=== PATIENT | male | born 1985 | race Two or more races ===

== ENCOUNTER 2025-05-09 17:40 | Inpatient (IN) | payer MEDICAID ==
[~2025-05-09] VITALS: Ht 167.6 cm; Wt 79.8 kg
[2025-05-09 17:45] VITALS: O2SAT 100
[2025-05-09 20:06] LABS: BASOPHILS % 0.1 % (0.0-2.0); EOSINOPHILS % 0.3 % (0.0-5.0); HEMATOCRIT. 41.5 % (42.0-52.0); HEMOGLOBIN. 13.9 g/dL (14.0-18.0); LYMPHOCYTES % 9.1 % (20.0-50.0); MEAN PLATELET VOLUME 8.3 fl (7.4-10.4); MONOCYTES % 8.6 % (2.0-8.0); NEUTROPHILS % 81.9 % (40.0-76.0); PLATELET 377 x1000/uL (130-400); RED BLOOD CELL COUNT 4.40 mill/uL (4.7-6.1); RED CELL DISTRIBUTION WIDTH 12.5 % (11.6-14.6)
[2025-05-09 20:15] LABS: CREATININE 1.6 mg/dL (0.6-1.3); INR 1.0; UREA NITROGEN BLOOD 17 mg/dL (9-23)
[2025-05-09] MEDS: LORAZEPAM 2MG/ML UD SYRINGE IM NR (20:15)
[2025-05-09 20:17] LABS: ASPARTATE AMINOTRANSFERASE 70 IU/L (<34); BILIRUBIN DIRECT 0.5 mg/dL (<=3.0); BILIRUBIN TOTAL 2.0 mg/dL (0.1-1.0); PROTEIN TOTAL 8.0 g/dL (6.0-8.3)
[2025-05-09 20:19] LABS: TROPONIN I HIGH SENSITIVITY 5 ng/L (3.0-53)
[2025-05-09] MEDS: IOHEXOL-300 100 ML BOTTLE ONE (22:37)
[2025-05-09] MEDS ORDERED: TETANUS, DIPHTHERIA, PERTUSSIS VAC/PF 0.5ML (>10YR OLD) IM ONE (22:45)
[2025-05-09] MEDS: LIDOCAINE HCL 1% 20ML VIAL INFIL ONE (22:45)
[2025-05-10 04:52] VITALS: BP 147/85; PULSE 94; RESP 19; TEMP 36.5292
[2025-05-10] MEDS: PANTOPRAZOLE 40MG DR TABLET PO SCH (06:14)
[2025-05-10 08:00] VITALS: BP 132/80; PULSE 89; RESP 17; TEMP 36.8; O2SAT 98
[2025-05-10] MEDS: THIAMINE HCL 100MG TABLET PO SCH (08:39)
[2025-05-10] MEDS: METOPROLOL TARTRATE 50MG TABLET PO SCH (08:39)
[2025-05-10] MEDS: FOLIC ACID 1MG TABLET PO SCH (08:39)
[2025-05-10] MEDS: HYDROCODONE/ACETAMINOPHEN 5/325MG TABLET PO PRN (10:41)
[2025-05-10 12:00] VITALS: BP 125/81; PULSE 77; RESP 18; TEMP 36.3; O2SAT 99
[2025-05-10] MEDS ORDERED: ACETAMINOPHEN 325MG TABLET PO PRN (15:00)
[2025-05-10] MEDS ORDERED: MORPHINE SULFATE 2 MG/ML INJ (NOT FOR IM USE) IV PRN (15:00)
[2025-05-10] MEDS ORDERED: NALOXONE HCL 0.4MG/ML VIAL IV PRN (15:15)
[2025-05-10 16:00] VITALS: BP 118/84; PULSE 72; RESP 18; TEMP 36.4; O2SAT 99
[2025-05-10] MEDS: PANTOPRAZOLE SODIUM 40 MG/VIAL IV SCH (16:08)
[2025-05-10 20:00] VITALS: BP 134/91; PULSE 78; RESP 16; TEMP 37; O2SAT 99
[2025-05-11] VITALS: BP 133/90; PULSE 79; RESP 18; TEMP 36.5; O2SAT 97
[2025-05-11 04:45] VITALS: BP 144/87; PULSE 67; RESP 18; TEMP 36.3; O2SAT 98
[2025-05-11 07:18] LABS: BASOPHILS % 0.3 % (0.0-2.0); EOSINOPHILS % 2.9 % (0.0-5.0); HEMATOCRIT. 41.6 % (42.0-52.0); HEMOGLOBIN. 14.1 g/dL (14.0-18.0); LYMPHOCYTES % 38.4 % (20.0-50.0); MEAN PLATELET VOLUME 8.6 fl (7.4-10.4); MONOCYTES % 13.9 % (2.0-8.0); NEUTROPHILS % 44.5 % (40.0-76.0); PLATELET 311 x1000/uL (130-400); RED BLOOD CELL COUNT 4.41 mill/uL (4.7-6.1); RED CELL DISTRIBUTION WIDTH 12.4 % (11.6-14.6)
[2025-05-11 07:42] LABS: CREATININE 1.3 mg/dL (0.6-1.3); UREA NITROGEN BLOOD 18 mg/dL (9-23)
[2025-05-11 08:00] VITALS: BP 156/89; PULSE 97; RESP 15; TEMP 36.7; O2SAT 95
[2025-05-11] MEDS: POLYETHYLENE GLYCOL 3350 (17GM) 1 DOSE PACK PO SCH (11:20)
[2025-05-11] MEDS: SENNOSIDES/DOCUSATE SOD 8.6/50MG TABLET PO SCH (11:20)
[2025-05-11 12:00] VITALS: BP 194/120; PULSE 74; RESP 20; TEMP 36.7; O2SAT 97
[2025-05-11] MEDS: HYDRALAZINE 10 MG in SODIUM CHLORIDE 0.9% 49.5 ML IV PRN (14:29)
[2025-05-11 16:00] VITALS: BP 170/102; PULSE 75; RESP 20; TEMP 36.2; O2SAT 95
[2025-05-11] MEDS: ONDANSETRON HCL 4MG/2ML INJ IV PRN (16:51)
[2025-05-11] MEDS ORDERED: IBUPROFEN 800MG TABLET PO PRN (17:00)
[2025-05-11 20:00] VITALS: BP 126/86; PULSE 69; RESP 17; TEMP 36.5; O2SAT 98
[2025-05-12] VITALS: BP 126/79; PULSE 73; RESP 18; TEMP 36.9; O2SAT 95
[2025-05-12 01:30] LABS: CLARITY URINE CLEAR (CLEAR); COLOR URINE YELLOW (YELLOW); GLUCOSE URINE NEGATIVE (NEGATIVE); KETONES URINE 1+ (NEGATIVE); LEUKOCYTE ESTERASE URINE NEGATIVE (NEGATIVE); NITRITE URINE NEGATIVE (NEGATIVE); OCCULT BLOOD URINE TRACE (NEGATIVE); PH URINE 6.0 (4.5-8.0); PROTEIN URINE NEGATIVE (NEGATIVE); SPECIFIC GRAVITY URINE 1.013 (1.005-1.030); UROBILINOGEN URINE 0.2 E.U./dL (0.2-1.0)
[2025-05-12 01:46] LABS: *AMPHETAMINES SCREEN URINE PRESUMPTIVE POSITIVE (NEGATIVE); *BARBITURATES SCREEN URINE NEGATIVE (NEGATIVE); *BENZODIAZEPINES SCREEN URINE NEGATIVE (NEGATIVE); *COCAINE SCREEN URINE NEGATIVE (NEGATIVE); CANNABINOID URINE SCREEN NEGATIVE (NEGATIVE); METHADONE URINE SCREEN NEGATIVE (NEGATIVE); OPIATES URINE SCREEN PRESUMPTIVE POSITIVE (NEGATIVE); PHENCYCLIDINE URINE SCREEN NEGATIVE (NEGATIVE)
[2025-05-12 01:47] LABS: ECSTASY MDMA SCREEN URINE NEGATIVE (NEGATIVE)
[2025-05-12 04:00] VITALS: BP 130/83; PULSE 65; RESP 16; TEMP 36.7; O2SAT 97
[2025-05-12 05:23] LABS: BACTERIA URINE NONE SEEN; RBC URINE 0-2 /hpf (0-2); SQUAMOUS EPITHELIAL CELL URINE NONE SEEN /lpf (RARE/1+); WBC URINE 0-2 /hpf (0-2)
[2025-05-12 07:34] LABS: CREATININE 1.3 mg/dL (0.6-1.3); UREA NITROGEN BLOOD 14 mg/dL (9-23)
[2025-05-12 07:37] LABS: BASOPHILS % 0.3 % (0.0-2.0); EOSINOPHILS % 1.5 % (0.0-5.0); HEMATOCRIT. 43.9 % (42.0-52.0); HEMOGLOBIN. 14.5 g/dL (14.0-18.0); LYMPHOCYTES % 33.2 % (20.0-50.0); MEAN PLATELET VOLUME 8.4 fl (7.4-10.4); MONOCYTES % 12.4 % (2.0-8.0); NEUTROPHILS % 52.6 % (40.0-76.0); PLATELET 331 x1000/uL (130-400); RED BLOOD CELL COUNT 4.64 mill/uL (4.7-6.1); RED CELL DISTRIBUTION WIDTH 12.5 % (11.6-14.6)
[2025-05-12 08:00] VITALS: BP 134/81; PULSE 70; RESP 18; TEMP 36.1; O2SAT 97
[2025-05-12 12:00] VITALS: BP 132/91; PULSE 100; RESP 18; TEMP 36.2; O2SAT 96
[2025-05-12 13:13] VITALS: BP 132/91; PULSE 100; RESP 18; TEMP 97.2
== END 2025-05-12 13:55 | disposition home or self-care (01) | DRG 342 ==
LOC: ER 17:40 → 8EST 23:18 → EDBEDREQ 23:21 → EDBEDREQTM 23:21 → EDBEDREQ 23:22 → ENRESERV 23:37
PROVIDERS: ADMIT Internal Medicine; ATTEND Internal Medicine
PROC: 0HQCXZZ Repair Left Upper Arm Skin, External Approach (ICD-10-PCS; principal; 2025-05-09)
DX: S62.616A Displaced fracture of proximal phalanx of right little finger, initial encounter for closed fracture (principal); G93.41 Metabolic encephalopathy; S82.832A Other fracture of upper and lower end of left fibula, initial encounter for closed fracture; I10 Essential (primary) hypertension; M25.78 Osteophyte, vertebrae; F17.210 Nicotine dependence, cigarettes, uncomplicated; S41.012A Laceration without foreign body of left shoulder, initial encounter; V47.5XXA Car driver injured in collision with fixed or stationary object in traffic accident, initial encounter; Y93.89 Activity, other specified; Y99.8 Other external cause status; Y92.488 Other paved roadways as the place of occurrence of the external cause
CPT/HCPCS: 12001; 36415; 71045; 71275; 72170; 73130; 73590; 73610; 74174; 80048; 80076; 80305; 80320; 81003; 84484; 85025; 86850; 86900; 90715; 93005; 96372; 97162; 99285; A4606; J0360; J2003; J2060; J2405; J2470; Q9967; G0480